=== PATIENT | female | born 1965 | race African-American/Black ===

== ENCOUNTER 2018-04-22 12:05 | Outpatient (CLI) | payer OTHER ==
--- NOTE | 2018-04-22 14:29 | Diagnostic Imaging Report ---
TARAN LARRY [facility] [address] [facility] [address] [address] Report Submission Date: Apr 22, 2018 1:01:31 PM SUPERVISORY HISTORIAN Patient Study Name: GUILHERME GALVAN Date: Apr 22, 2018 12:27:16 PM SUPERVISORY HISTORIAN Modality Type: DX Gender: F Description: UPPER EXTREMITY : 61 Institution: [facility] Physician: TARAN LARRY Examination: Plain film right hand History: 3RD DIGIT IS LOCKED UP, NO INJURY. Comparison exams: None available Findings: 3 views of the right hand demonstrates articular degenerative changes. No fracture. No dislocation. No soft tissue abnormality. Impression: No acute appearing osseous abnormality Electronically signed on Apr 22, 2018 1:01:31 PM SUPERVISORY HISTORIAN by: Luis Alberto HENDERSON
== END 2018-04-22 12:10 | disposition home or self-care (01) ==
LOC: RAD 12:05
PROVIDERS: ATTEND Family Medicine
DX: M79.644 Pain in right finger(s) (principal)
CPT/HCPCS: 73130